=== PATIENT | female | born 1990 ===

== ENCOUNTER 2016-10-10 16:34 | Emergency (ER) | payer OTHER ==
[2016-10-10] MEDS ORDERED: ONDANSETRON 4 MG/2ML 2 ML VIAL ONE (16:46)
[2016-10-10] MEDS ORDERED: SODIUM CHLORIDE 0.9% 1,000 ML ONE ×2 (16:54→19:21)
[2016-10-10] MEDS ORDERED: PROMETHAZINE HCL 25 MG/ML VIAL ONE (16:55)
[2016-10-10 17:18] LABS: ABSOLUTE NEUTROPHIL COUNT 7.3 K/mm3 (1.8-7.7); BASO % 0.4 % (0.2-1.0); EOS % 0.1 % (0.9-2.9); HEMATOCRIT 46.7 % (37.0-47.0); HEMOGLOBIN 15.6 gm/l (12.0-16.0); IMM NEUT% 0.4 % (0-1); LYMPH # 1.7 (1.0-4.8); MEAN CELL VOLUME 89.5 fl (81.0-99.0); MEAN CORPUSCULAR HEMOGLOBIN 29.9 pg (27.0-31.0); MEAN CORPUSCULAR HGB CONC 33.4 g/dl (33.0-37.0); MEAN PLATELET VOLUME 8.9 fl (7.4-10.4); MONO # 0.2 (0.0-0.8); MONO % 2.4 % (4-12); NEUT % 78.7 % (43-75); PLATELET COUNT 409 K/mm3 (130-400); RED CELL DISTRIBUTION WIDTH 11.9 % (11.5-14.5)
[2016-10-10 17:28] LABS: PARTIAL THROMBOPLASTIN TIME 26.1 SECONDS (24.5-33.0); PROTHROMBIN TIME 10.5 SECONDS (9.3-11.4)
[2016-10-10 17:32] LABS: ALB/GLOB RATIO 1.2 (>1.0); ALBUMIN 4.5 gm/dL (3.5-5.7); CALCIUM 10.7 mg/dL (8.6-10.3)
[2016-10-10] MEDS ORDERED: FAMOTIDINE 10 MG/ML 2ML VIAL ONE (18:30)
[2016-10-10] MEDS ORDERED: PANTOPRAZOLE SODIUM 40 MG VIAL IV ONE (18:30)
[2016-10-10 18:41] LABS: URINE BILIRUBIN NEGATIVE (NEGATIVE); URINE BLOOD NEGATIVE (NEGATIVE); URINE GLUCOSE (UA) NEGATIVE (NEGATIVE); URINE LEUKOCYTE ESTERASE NEGATIVE (NEGATIVE); URINE NITRITE NEGATIVE (NEGATIVE); URINE PROTEIN NEGATIVE (NEGATIVE); URINE UROBILINOGEN NORMAL (0-1 mg/dl)
[2016-10-10 18:51] LABS: URINE APPEARANCE CLEAR; URINE COLOR YELLOW
[2016-10-10 18:53] LABS: AMPHETAMINES/METHAMPHETAMINES NEGATIVE (NEGATIVE); COCAINE NEGATIVE (NEGATIVE); MARIJUANA NEGATIVE (NEGATIVE); METHADONE NEGATIVE (NEGATIVE); OPIATES NEGATIVE (NEGATIVE); TRICYCLIC ANTIDEPRESSANTS NEGATIVE (NEGATIVE)
[2016-10-10] MEDS ORDERED: PROMETHAZINE HCL 6.25 MG in SODIUM CHLORIDE 0.9% 50 ML IV ONE (20:00)
[2016-10-10] MEDS ORDERED: PROMETHAZINE HCL 12.5 MG in SODIUM CHLORIDE 0.9% 50 ML IV ONE (20:15)
== END 2016-10-10 21:16 | disposition home or self-care (01) ==
LOC: ED 16:34
DX: K92.0 Hematemesis (principal); F10.129 Alcohol abuse with intoxication, unspecified; Y90.6 Blood alcohol level of 120-199 mg/100 ml; J40 Bronchitis, not specified as acute or chronic; F17.210 Nicotine dependence, cigarettes, uncomplicated; H60.90 Unspecified otitis externa, unspecified ear